=== PATIENT | female | born 1935 | race Caucasian/White ===

== ENCOUNTER → 2016-08-13 | Day surgery (SDC) | payer MEDICARE ==
[~2016-08-13] VITALS: Ht 170.1 cm; Wt 90.7 kg
[~2016-08-13] MED LIST: CLOPIDOGREL75 MG PO; COZAAR100 MG PO; FISH OIL 1,2001 EAC1 PO
--- NOTE | ~2016-08-13 | O ---
[place], [place] OPERATIVE NOTE NAME: [facility]Z [facility] [id number] UNIT #: [id number] ROOM: DOCTOR: SORAYA REAVES MD BIRTHDATE: [birth year] DOS: 08/13/2016 PREOPERATIVE DIAGNOSIS: Cataract, left eye. POSTOPERATIVE DIAGNOSIS: Cataract, left eye. OPERATION: Extracapsular cataract extraction by phacoemulsification with posterior chamber intraocular lens implantation, left eye. ANESTHESIA: Monitored standby. OPERATIVE FINDINGS AND PROCEDURE: 2% Xylocaine topical anesthetic gel was applied to the eye in the preop area. The patient was taken to the operating room and prepped and draped in the standard fashion for sterile intraocular surgery. A time out procedure was performed verifying correct patient, correct site and corrects lens with Petty Reaves M.D. The operating microscope was swung into position and the lid speculum was inserted. Using a Lexus paracentesis blade, a paracentesis was made through clear cornea. Viscoelastic was used to fill the anterior chamber. Using a metal keratome a 2.4 mm self-sealing clear corneal cataract incision was made temporally at the limbus. Using a pre-bent 25 gauge cystotome needle, a standard continuous curvilinear capsulorrhexis was performed. The anterior capsule was removed with forceps. The lens nucleus was hydrodissected and phacoemulsified in the posterior chamber. Cortical material was removed with the irrigation aspiration hand piece and the posterior capsule was then polished with a curet under irrigation. The posterior chamber and capsular bag were filled with viscoelastic. A posterior chamber intraocular lens manufactured by: [employer], Model #[id number], and 21.5 diopters in strength were then inserted into the posterior chamber and within the capsular bag using the lens cartridge and injector system. Viscoelastic was removed using the irrigation aspiration handpiece. The anterior chamber was filled with balanced salt solution through the paracentesis. Both the paracentesis site and cataract incisions were hydrated with BSS and verified to be water-tight and self-sealing. Cefuroxime 1 mg/1 mL was injected into the anterior chamber through the paracentesis site. The incision checked to be water-tight using a Weck-Sangeeta sponge. The integrity of the cataract wound and ocular tension were checked. Lid speculum and drapes were removed. The patient was transferred from the operating room to the recovery room in satisfactory condition. [place], [place] OPERATIVE NOTE NAME: ZEESHAN KATZ UNIT #: [id number] ROOM: DOCTOR: SORAYA REAVES MD BIRTHDATE: [birth year] SORAYA REAVES MD CM:OPRECORD:OPERATIVE NOTE 1122 [id number] SROAYA REAVES MD 08/13/16 1134 interface
[2016-08-13 09:49] VITALS: BP 145/72
[2016-08-13 11:22] VITALS: BP 135/63
[2016-08-13 11:37] VITALS: BP 135/63
[2016-08-13 11:45] VITALS: BP 120/61
== END | disposition home or self-care (01) ==
LOC: SDC 08-08 14:00
DX: H26.9 Unspecified cataract (principal); Z86.73 Personal history of transient ischemic attack (TIA), and cerebral infarction without residual deficits; I10 Essential (primary) hypertension; Z98.41 Cataract extraction status, right eye

== ENCOUNTER 2022-07-12 14:16 | Emergency (ER) | payer MEDICARE ==
[~2022-07-12] VITALS: Ht 170.1 cm; Wt 81.6 kg
[2022-07-12] MEDS ORDERED: METOPROLOL SUCC50 M1 PO (14:28)
== END 2022-07-12 16:17 | disposition home or self-care (01) ==
LOC: ED 14:16
DX: S01.81XA Laceration without foreign body of other part of head, initial encounter (principal); I10 Essential (primary) hypertension; Z88.5 Allergy status to narcotic agent; Z88.8 Allergy status to other drugs, medicaments and biological substances; Z98.890 Other specified postprocedural states; Z98.41 Cataract extraction status, right eye; W26.8XXA Contact with other sharp object(s), not elsewhere classified, initial encounter; Y93.89 Activity, other specified; Y92.89 Other specified places as the place of occurrence of the external cause; Y99.8 Other external cause status

== ENCOUNTER → 2022-07-23 | Outpatient (CLI) | payer MEDICARE ==
[~2022-07-23] MED LIST changes: +METOPROLOL SUCC50 M1 PO
== END | disposition home or self-care (01) ==
LOC: WOUNDCARE 03:22
PROVIDERS: ATTEND Nurse Practitioner Family
DX: S01.80XA Unspecified open wound of other part of head, initial encounter (principal); I10 Essential (primary) hypertension; Z98.41 Cataract extraction status, right eye; Z86.73 Personal history of transient ischemic attack (TIA), and cerebral infarction without residual deficits; Z48.02 Encounter for removal of sutures; W19.XXXA Unspecified fall, initial encounter; Y93.89 Activity, other specified; Y92.89 Other specified places as the place of occurrence of the external cause; Y99.8 Other external cause status